=== PATIENT | male | born 1995 | race Caucasian/White ===

== ENCOUNTER 2017-04-29 17:25 | Emergency (ER) | payer OTHER ==
[~2017-04-29] VITALS: Ht 157.5 cm; Wt 77.1 kg
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
[2017-04-29] MEDS ORDERED: NAPR-683 PO (19:02)
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
[2017-04-29] MEDS ORDERED: ORPH-16 PO (19:16)
[2017-04-29 19:28] VITALS: BP 132/76
== END 2017-04-29 19:28 | disposition home or self-care (01) ==
LOC: ER 17:25
DX: S09.8XXA Other specified injuries of head, initial encounter (principal); S16.1XXA Strain of muscle, fascia and tendon at neck level, initial encounter; S80.12XA Contusion of left lower leg, initial encounter; V49.49XA Driver injured in collision with other motor vehicles in traffic accident, initial encounter; Y93.89 Activity, other specified; Y99.8 Other external cause status; Y92.410 Unspecified street and highway as the place of occurrence of the external cause
CPT/HCPCS: 70450; 72125; 99284